=== PATIENT | female | born 1980 | race Caucasian/White ===

== ENCOUNTER 2016-05-27 19:45 | Emergency (ER) | payer MEDICAID ==
[~2016-05-27] VITALS: Ht 167.6 cm; Wt 124.0 kg
[~2016-05-27 19:45] MED LIST: IBUPROFEN
[2016-05-27 20:09] VITALS: BP 145/97
[2016-05-27] MEDS ORDERED: BACITRACIN ZINC OINT UDPKT TOP ONE (20:30)
== END 2016-05-27 22:17 | disposition home or self-care (01) ==
LOC: ER 21:59
DX: M79.671 Pain in right foot (principal); R20.2 Paresthesia of skin
CPT/HCPCS: 73630; 99284

== ENCOUNTER 2017-01-14 22:59 | Emergency (ER) | payer MEDICAID ==
[~2017-01-14] VITALS: Ht 165.1 cm; Wt 107.0 kg
[2017-01-14 16:30] LABS: CARBON DIOXIDE 23 mEq/L (21-32); CHLORIDE 102 mEq/L (98-107); CLARITY URINE CLEAR (CLEAR); COLOR URINE YELLOW (YELLOW); GLUCOSE URINE NEGATIVE (NEGATIVE); KETONES URINE NEGATIVE (NEGATIVE); LEUKOCYTE ESTERASE URINE NEGATIVE (NEGATIVE); NITRITE URINE NEGATIVE (NEGATIVE); OCCULT BLOOD URINE NEGATIVE (NEGATIVE); PH URINE 6.5 (4.5-8.0); PROTEIN URINE NEGATIVE (NEGATIVE); SPECIFIC GRAVITY URINE 1.005 (1.005-1.030); UROBILINOGEN URINE 0.2 E.U./dL (0.2-1.0)
[~2017-01-14 22:59] MED LIST changes: +ACETAMINOPHEN 500MG TABLET PO NR; +MVI, ADULT NO.1 10 ML in SODIUM CHLORIDE 0.9% 1,000 ML IV ONE; +ONDANSETRON HCL 4MG/2ML VIAL IM NR; +PREN-134 PO; +SODIUM CHLORIDE 0.9% 100 ML IV ONE; +SODIUM CHLORIDE 0.9% 500 ML IV ONE
[2017-01-14] MEDS ORDERED: SODIUM CHLORIDE 0.9% 1,000 ML IV ONE (23:54)
[2017-01-14] MEDS ORDERED: MAGNESIUM/ALUMINUM HYDROXIDE/SIMETHICONE 30ML UDC PO STA (23:55)
[2017-01-14] MEDS ORDERED: DICYCLOMINE 10 MG/5 ML ORAL SYR PO STA (23:55)
[2017-01-15 00:31] LABS: BASOPHILS % 0.2 % (0.0-2.0); EOSINOPHILS % 0.7 % (0.0-5.0); HEMATOCRIT. 33.2 % (36.0-48.0); HEMOGLOBIN. 11.7 g/dL (12.0-16.0); LYMPHOCYTES % 14.3 % (20.0-50.0); MEAN CORPUSCULAR HEMOGLOBIN 30.9 pg (28.0-32.0); MEAN CORPUSCULAR VOLUME 87.7 fL (81.0-99.0); MEAN PLATELET VOLUME 8.5 fl (7.4-10.4); MONOCYTES % 6.1 % (2.0-8.0); NEUTROPHILS % 78.7 % (40.0-76.0); PLATELET 162 x1000/uL (130-400); RED BLOOD CELL COUNT 3.78 mill/uL (4.2-5.4); RED CELL DISTRIBUTION WIDTH 13.4 % (11.6-14.6)
[2017-01-15 00:48] LABS: *AMPHETAMINES SCREEN URINE NEGATIVE (NEGATIVE); *BARBITURATES SCREEN URINE NEGATIVE (NEGATIVE); *BENZODIAZEPINES SCREEN URINE NEGATIVE (NEGATIVE); *COCAINE SCREEN URINE NEGATIVE (NEGATIVE); CANNABINOID URINE SCREEN NEGATIVE (NEGATIVE); METHADONE URINE SCREEN NEGATIVE (NEGATIVE); OPIATES URINE SCREEN NEGATIVE (NEGATIVE); PHENCYCLIDINE URINE SCREEN NEGATIVE (NEGATIVE)
[2017-01-15 00:48] LABS: CARBON DIOXIDE 24 mEq/L (21-32); CHLORIDE 105 mEq/L (98-107); ETHANOL BLOOD < 10 mg/dL
[2017-01-15] MEDS ORDERED: POTASSIUM BICARB/CIT ACID 25 MEQ TABLET.EFF PO SCH (01:15)
[2017-01-15 01:52] VITALS: BP 131/73
== END 2017-01-15 02:31 | disposition home or self-care (01) ==
LOC: ER 22:59 → EDSTATUS 22:59 → ER 01-15 02:31
DX: O26.612 Liver and biliary tract disorders in pregnancy, second trimester (principal); K76.0 Fatty (change of) liver, not elsewhere classified; O99.282 Endocrine, nutritional and metabolic diseases complicating pregnancy, second trimester; E87.6 Hypokalemia; Z3A.22 22 weeks gestation of pregnancy
CPT/HCPCS: 36415; 76700; 76805; 80053; 80305; 81003; 83605; 83690; 84702; 85025; 86850; 86900; 86901; 96361; 96365; 96366; 99285; G0482; J2405; J3490; J7030; J7120; Z7610; 96372

== ENCOUNTER 2017-04-11 14:39 | Emergency (ER) | payer MEDICAID ==
[~2017-04-11] VITALS: Ht 167.6 cm; Wt 123.0 kg
[~2017-04-11 14:39] MED LIST changes: -ACETAMINOPHEN 500MG TABLET PO NR; -MVI, ADULT NO.1 10 ML in SODIUM CHLORIDE 0.9% 1,000 ML IV ONE; -ONDANSETRON HCL 4MG/2ML VIAL IM NR; -SODIUM CHLORIDE 0.9% 100 ML IV ONE; -SODIUM CHLORIDE 0.9% 500 ML IV ONE
[2017-04-11] MEDS ORDERED: ACETAMINOPHEN 325MG TABLET PO ONE (19:00)
[2017-04-11 22:05] VITALS: BP 138/75
== END 2017-04-11 22:05 | disposition home or self-care (01) ==
LOC: ER 16:30
DX: O26.893 Other specified pregnancy related conditions, third trimester (principal); S92.912A Unspecified fracture of left toe(s), initial encounter for closed fracture; Z3A.34 34 weeks gestation of pregnancy; W22.8XXA Striking against or struck by other objects, initial encounter; Y93.89 Activity, other specified; Y92.018 Other place in single-family (private) house as the place of occurrence of the external cause
CPT/HCPCS: 73630; 99284; J7030; Z7610

== ENCOUNTER 2018-08-31 11:10 | Emergency (ER) | payer MEDICAID ==
[~2018-08-31] VITALS: Ht 167.6 cm; Wt 125.0 kg
[2018-08-31 11:45] VITALS: BP 141/85
[2018-08-31] MEDS ORDERED: IBUPROFEN 800MG TABLET PO ONE (12:00)
== END 2018-08-31 13:14 | disposition home or self-care (01) ==
LOC: ER 11:10
DX: S43.492A Other sprain of left shoulder joint, initial encounter (principal); X50.0XXA Overexertion from strenuous movement or load, initial encounter; Y93.89 Activity, other specified; Y92.89 Other specified places as the place of occurrence of the external cause; Y99.8 Other external cause status
CPT/HCPCS: 71045; 73030; 99283